=== PATIENT | female | born 1990 | race Caucasian/White ===

== ENCOUNTER → 2017-10-02 15:04 | Outpatient (CLI) | payer OTHER, SELFPAY ==
[2017-10-08 10:51] LABS: AFP 64.1 ng/mL; Calc Gestational Age 19.4; Hx of Neural Tube Defect NOT GIVEN; Inhibin A Value 316 pg/mL; Method of Estimation US; Prev Pregnancy with Down Syndr NOT GIVEN
== END ==
PROVIDERS: PCP Obstetrics & Gynecology; Visit Provider Obstetrics & Gynecology
DX: Z34.02 Encounter for supervision of normal first pregnancy, second trimester (principal)
CPT/HCPCS: 36415; 82105; 82677; 84702; 86336

== ENCOUNTER → 2017-10-08 10:38 | Outpatient (CLI) | payer OTHER, SELFPAY ==
--- NOTE | 2017-10-08 10:39 | DI.US.S_ITS ---
PROCEDURE: US OB >= 14 WEEKS FETUS INDICATIONS: 20 week anatomic survey OUTSIDE/PRIOR DATING DATA: Last menstrual period (LMP): Unknown LMP-based estimated date of delivery (LARISSA): N./A.. First dating scan (date and location): 08/02/17 Estimated date of delivery (LARISSA) from first dating scan: 02/23/18. TECHNIQUE: Real-time scanning was performed of the fetus, with image documentation and biometric measurements. Endovaginal scanning: No COMPARISON: [facility], , OB COMPLETE LESS THAN 14 WKS, 08/02/2017, 14:10. [facility], , US OB >= 14 WEEKS FETUS, 09/04/2017, 10:15. FINDINGS: General: A single living intrauterine gestation is present. Presentation: Vertex. Placenta: Placental position is anterior, without previa. Amniotic fluid index: 11.8 cm, normal range is 5-24 cm. heart rate: 145 beats per minute. Maternal cervical canal: 4.0 cm long. biometrics: Biparietal diameter: 5.0 cm; 21 weeks 2 days Head circumference: 19 cm; 21 weeks 2 days Abdominal circumference: 15 cm; 20 weeks 2 days Femur length: 3.4 cm; 20 weeks 5 days Estimated gestational age from initial scan: 20 weeks 2 days Composite gestational age from present scan: 20 weeks 6 days Estimated weight and percentile: 360 g; 59 percentile Measurement variability for biometric dating: +/- 7 days from 14 weeks to 15 weeks 6 days gestation, +/- 10 days from 16 weeks to 21 weeks 6 days gestation, +/- 2 weeks from 22 weeks to 27 weeks 6 days gestation, +/- 3 weeks for 28 weeks gestation or later. weight reference: 4500 g or EFW >90/95% is considered macrosomia or large for gestational age. EFW <10% is small for gestational age. EFW 5% or less is considered intra-uterine growth restriction. Anatomic survey: Neuro: Ventricles are non-dilated at less than 10 mm. Cisterna magna is normal at 3-11 mm. Cerebellum is normal in size and morphology. Nuchal skin fold: Normal at less than 6 mm between 14-21 weeks gestational age. Face: Facial profile not well visualized otherwise normal anatomic survey. Spine: No evidence for spina bifida. Heart: 4-chambered heart is present, with normal ventricular outflow tracts. Diaphragm: Diaphragm is intact. Stomach: Left-sided stomach is present. Kidneys: No hydronephrosis. Normal is less than 5 mm in 2nd trimester, less than 7 mm in 3rd trimester. Cord: 3-vessel cord has orthotopic insertion. Bladder: Normal in size. Extremities: All 4 extremities identified. IMPRESSION: 1. Single living IUP redemonstrated and interval growth is normal with estimated weight 59th percentile. 2. Facial profile not well seen otherwise normal anatomy. Followup recommended. Dictated by: Renaldo Pacheco [facility] Interpreted: Trevor Enamorado MD on 10/08/2017 at 12:31 Approved by: Trevor Enamorado M.D. on 10/08/2017 at 12:46
== END ==
PROVIDERS: PCP Obstetrics & Gynecology; Visit Provider Obstetrics & Gynecology
DX: Z34.02 Encounter for supervision of normal first pregnancy, second trimester (principal); Z3A.20 20 weeks gestation of pregnancy
CPT/HCPCS: 76811

== ENCOUNTER → 2017-11-23 10:38 | Outpatient (CLI) | payer OTHER, SELFPAY ==
[2017-11-23 13:16] LABS: GTT (PREG) 1 Hour PP 50gm Dose 145 mg/dL (76-139)
[2017-11-23 13:37] LABS: Hematocrit 35.8 % (36-46); Hemoglobin 12.1 g/dL (12.0-16.0)
== END ==
PROVIDERS: PCP Obstetrics & Gynecology; Visit Provider Obstetrics & Gynecology
DX: Z34.02 Encounter for supervision of normal first pregnancy, second trimester (principal)
CPT/HCPCS: 36415; 82950; 85014; 85018; 86850

== ENCOUNTER → 2017-12-02 08:15 | Outpatient (CLI) | payer OTHER, SELFPAY ==
[2017-12-02 10:41] LABS: Glucose 1 Hour Gest 135 mg/dL (76-180)
[2017-12-02 10:45] LABS: Glucose Fasting Gestational 77 mg/dL (76-95)
[2017-12-02 11:43] LABS: Glucose Tol Interp,Gestational INTERPRETATION
[2017-12-02 11:45] LABS: Glucose 2 Hour Gest 113 mg/dL (76-155)
[2017-12-02 13:06] LABS: Glucose 3 Hour Gest 46 mg/dL (76-140)
== END ==
PROVIDERS: PCP Obstetrics & Gynecology; Visit Provider Obstetrics & Gynecology
DX: O99.810 Abnormal glucose complicating pregnancy (principal)
CPT/HCPCS: 36415; 82951; 82952

== ENCOUNTER → 2018-01-29 16:30 | Outpatient (CLI) | payer OTHER, SELFPAY ==
[2018-01-30 13:17] LABS: Strep Grp B PCR NEG for Grp B Strep
== END ==
PROVIDERS: PCP Obstetrics & Gynecology; Visit Provider Obstetrics & Gynecology
DX: Z34.03 Encounter for supervision of normal first pregnancy, third trimester (principal); Z3A.36 36 weeks gestation of pregnancy
CPT/HCPCS: 87653

== ENCOUNTER 2018-02-05 17:12 | Outpatient (CLI) | payer OTHER, SELFPAY ==
[2018-02-05 18:09] LABS: Platelet Count 286 X10^3/uL (150-400)
[2018-02-05 18:21] LABS: Aspartate Aminotransferase 24 IU/L (14-36); Blood Urea Nitrogen 12 mg/dL (7-17); Estimated Glomerular Filt Rate > 60.0 mL/min (>60); Uric Acid 5.6 mg/dL (2.5-6.2)
[2018-02-05 18:44] LABS: Hematocrit 35.9 % (36-46)
== END 2018-02-05 18:56 | disposition home or self-care (01) ==
LOC: LABOR 17:18 → OB 02-07 12:40
PROVIDERS: PCP Obstetrics & Gynecology; Visit Provider Obstetrics & Gynecology
DX: Z34.03 Encounter for supervision of normal first pregnancy, third trimester (principal); Z3A.37 37 weeks gestation of pregnancy
CPT/HCPCS: 36415; 59025; 84450; 84550; 85014; 85018; 85049; G0378; G0379

== ENCOUNTER 2018-02-17 05:12 | Inpatient (IN) | payer OTHER, SELFPAY ==
[2018-02-17 07:43] LABS: Add Manual Diff / Slide Review NO; Basophils Percent Auto 0.3 % (0-2); Eosinophils Percent Auto 0.1 % (2-4); Hemoglobin 12.9 g/dL (12.0-16.0); Lymphocytes Percent Auto 9.9 % (25-40); Mean Corpuscular Hemoglobin 28.7 PG (26-34); Mean Corpuscular Volume 84.4 fL (80-100); Monocytes Percent Auto 3.9 % (3-14); Neutrophils Absolute Auto 11900 /uL (3000-5900); Neutrophils Percent Auto 85.8 % (50-75); Platelet Count 290 X10^3/uL (150-400); Red Blood Cell Count 4.51 X10^6/uL (4.0-5.2); Red Cell Distribution Width 13.9 % (11.6-14.8); White Blood Cell Count 13.9 X10^3/uL (4.5-11.0)
[2018-02-17 08:18] VITALS: BP 138/88
[2018-02-17] MEDS: DERMOPLAST SPRAY 20% 60 ML 1 SPRAY TOP (18:15)
[2018-02-17] MEDS: LANOLIN OINT 7 GM 1 APPLIC TOP (18:15)
--- NOTE | 2018-02-17 18:17 | PM.OBHP.1 ---
OB HPI Date/Time Date of admission: 02/17/18 Date Patient Seen: 02/17/18 Time Patient Seen: 07:30 History of Present Condition Chief complaint: EVALUATION OF LABOR : 1 Para: 0 Estimated Date of Delivery: 02/23/18 Estimated Gestational Age (weeks): 39+ 1 Narrative: Katharina Calabrese is a 27 year old female 1 para 0 at 39-,1/7 weeks gestation who presented in active labor Indications Other reason(s) for admission: Active labor History of Present care: none, good care, initiated at week # (10 weeks), number of visits (11) and pounds weight gain (16) Dating criteria: LMP confirmed by 1st trimester US Ultrasounds: normal 1st trimester US and normal mid trimester US Obstetrical complications: none Medical complications: none Preadmission Labs Blood type: 0 (-) negative -: Antibody screen: negative, GBS status: negative, HBsAG: negative, HIV: negative, HSV 1: negative, HSV 2: negative and RPR/VDLR: negative -: Chlamydia screen: not detected and Gonorrhea screen: not detected -: Rubella: not immune and Varicella: immune HCT: 35.8 HCAB: negative PAP: Normal Quad screen: Normal Urine: Negative 1 hr GTT: 145 3 hr GTT: 1 hr (135), 2 hr (113) and 3 hr (46) Fasting blood glucose: 77 Evaluation Evaluation Baseline heart rate: 120 Variability: Moderate (11-25) monitor accelerations: Present monitor decelerations: Absent Contraction Frequency (minutes): 3 Uterine Contraction Intensity: Strong/Firm Category of Tracing: I Cervical dilation (cm): 6 Cervical effacement (%): 100 station: -1 Laboratory results: Laboratory Tests 02/17/18 02/17/18 07:06 07:25 WBC 13.9 H RBC 4.51 Hgb 12.9 Hct 38.0 MCV 84.4 MCH 28.7 MCHC 34.0 RDW 13.9 Plt Count 290 Neut % (Auto) 85.8 H Lymph % (Auto) 9.9 L Wilbarger % (Auto) 3.9 Eos % (Auto) 0.1 L Baso % (Auto) 0.3 Neut # (Auto) 09195 H Blood Type O Negative Antibody Screen Positive Antibody Identification Anti-D PFSH Social History Smoking Status: Unknown if ever smoked Meds Home Medications Medication Instructions Recorded Confirmed Type No Known Home Medications 02/17/18 02/17/18 History Allergies Allergy/AdvReac Type Severity Reaction Status Date / Time No Known Drug Allergies Allergy Verified 02/17/18 18:20 Exam Vital Signs (past 8 hours): Generally: Patient lying in bed, in moderate distress secondary to pain of contractions Lungs: Clear to auscultation bilaterally Cardiovascular: Regular rate and rhythm Fundal height: 40 cm Estimated weight: 7 and 0.5 lb Extremities: Negative Homans, no edema Objective Labs Result Diagrams: 02/17/18 07:25 Labs: Laboratory Results - last 24 hr 02/17/18 02/17/18 07:06 07:25 WBC 13.9 H RBC 4.51 Hgb 12.9 Hct 38.0 MCV 84.4 MCH 28.7 MCHC 34.0 RDW 13.9 Plt Count 290 Neut % (Auto) 85.8 H Lymph % (Auto) 9.9 L [place] % (Auto) 3.9 Eos % (Auto) 0.1 L Baso % (Auto) 0.3 Neut # (Auto) 52907 H Blood Type O Negative Antibody Screen Positive Antibody Identification Anti-D Assessment and Plan (1) 39 weeks gestation of : Current visit: Yes Status: Acute Assessment: 27-year-old 1 para 0 at 39-,1/7 weeks gestation in active labor Plan: Expectant management of spontaneous vaginal delivery
--- NOTE | 2018-02-17 18:25 | PM.OBPRVD ---
Delivery date: 02/17/18 Intrapartal events: Intolerance Induction method: AROM Delivery monitor: external FHT and external uterine Route of delivery: vacuum extraction Indication for instrumentation: nonreassuring FHR tracing Episiotomy description: None Laceration description: Labial Delivery repair: chromic Estimated blood loss (mL): 250 Anesthesia type: Local (for repair) Complications: None Narrative: Patient complete and pushed for 29 min. At 11:47 a.m., a live male infant was delivered with vacuum assistance due to deep variable decelerations with pushing, over an intact perineum. No nuchal cord. The remainder of the body delivered without difficulty and was placed on mom's abdomen. The cord was double clamped and cut. Cord bloods were obtained. The placenta delivered intact with a 3 vessel cord at 11:54 a.m.. Apgars 8 at 1 min and 9 at 5 min. Weight 7 lb 11.95 oz. . Local anesthesia only for the repair. Repair consisted of bilateral labial lacerations. Mom and infant stable to recovery. Plan for aftercare: To routine care
[2018-02-17 23:31] VITALS: TEMP 37.1
[2018-02-17] MEDS: IBUPROFEN 600 MG TABLET PO (23:31)
[2018-02-18] MEDS: IBUPROFEN 600 MG TABLET PO ×2 (05:36→14:51)
[2018-02-18] MEDS: RHO(D) IMMUNE GLOBULIN 1,500 UNIT SYRINGE 1500 UNIT IM (06:17)
[2018-02-18 07:58] LABS: Hematocrit 34.1 % (36-46); Hemoglobin 11.5 g/dL (12.0-16.0)
--- NOTE | 2018-02-18 09:27 | P.DS_ITS ---
Discharge Providers Date of admission: 02/17/18 05:12 Primary care physician: Diane Jay MD Consults: 02/17/18 12:42 Consult to Automotive Technician Instructor Routine Comment: Discharge provider: Mere Ferris MD Discharge Date: 02/18/18 Summary Date Patient Seen: 02/18/18 Time Patient Seen: 09:22 Hospital Course: Patient arrived on Labor and delivery in active labor. She had a vacuum assisted vaginal delivery on 02/17/2018. She had labial tear repaired. Patient did well well . She was urinating well, ambulatory, tolerating regular diet. She denies any signs or symptoms of preeclampsia. Blood pressure 128/81, pulse of 98, temperature 98.1? Abdomen is soft, nontender. Uterus is firm, at U, nontender. Mild lochia. Extremities with trace edema and nontender. Peripartum Data Delivery Method: Natural Vaginal Laceration description: Labial Procedures: Vacuum assisted vaginal delivery, repair of labial laceration complications: none Discharge Diagnosis (1) 39 weeks gestation of : Status: Acute (2) Vaginal delivery: Status: Acute Status at Discharge Functional status at discharge: independent ambulation Overall status at discharge: patient is progressing back to baseline Time Spent with Patient Total time spent providing and/or coordinating discharge services: Less than 30 minutes Objective Labs Result Diagrams: 02/18/18 07:05 Labs: Laboratory Results - last 24 hr 02/17/18 02/18/18 02/18/18 07:06 07:05 07:05 Hgb 11.5 L Hct 34.1 L Blood Type O Negative Antibody Screen Positive Antibody Identification Anti-D Maternal Bleed Negative Discharge Plan Discharge Plan Patient Disposition: Home Discharge Med Rec/Prescriptions Prescriptions: No Action No Known Home Medications RF: 0 Follow up/Referrals: Diane Jay MD [Primary Care Provider] - 6 Weeks Provider Discharge Instructions Diet: Regular Activity: Nothing in vagina for 6 weeks Skin/Wound/Dressing Care Report to your healthcare provider any signs of infection, such as:: chills, fever, night sweats and unusual drainage Discharge Data Primary Care Provider: Diane Jay Attending Provider: Diane Jay Admit Date/Time: 02/17/18 05:12
[2018-02-18 12:02] VITALS: BP 128/81; PULSE 98; RESP 18; TEMP 36.7
[2018-02-18] MEDS: MEASLES,MUMPS,RUBELLA VACC/PF 0.5 ML VIAL SUBCUT (14:48)
== END 2018-02-18 16:00 | disposition home or self-care (01) | DRG 807 ==
PROVIDERS: Admitting Provider Obstetrics & Gynecology; PCP Obstetrics & Gynecology; Visit Provider Obstetrics & Gynecology
DX: O76 Abnormality in fetal heart rate and rhythm complicating labor and delivery (principal); Z37.0 Single live birth; Z3A.39 39 weeks gestation of pregnancy; O70.0 First degree perineal laceration during delivery
CPT/HCPCS: 36415; 59050; 59400; 85014; 85018; 85025; 85461; 86850; 86870; 86900; 86901; G0379; J2790